=== PATIENT | female | born 1985 | race Caucasian/White ===

== ENCOUNTER 2018-02-03 19:20 | Inpatient (IN) | payer MEDICAID ==
[2018-02-03 21:52] LABS: ADD MAN DIFF? NO
[2018-02-03 21:56] LABS: ADD UMIC NO; UR ASCORBIC ACID NEGATIVE (NEGATIVE); UR BILIRUBIN (Dip) NEGATIVE (NEGATIVE); UR BLOOD (Dip) NEGATIVE (NEGATIVE); UR CLARITY CLEAR (CLEAR); UR COLOR COLORLESS (YELLOW); UR GLUCOSE (Dip) 3+ mg/dL (NEGATIVE); UR KETONES (Dip) 1+ mg/dL (NEGATIVE); UR LEUKOCYTE ESTERASE (Dip) NEGATIVE Leu/ul (NEGATIVE); UR NITRITE (Dip) NEGATIVE (NEGATIVE); UR SPECIFIC GRAVITY (Dip) 1.022 (1.003-1.030); UR TOTAL PROTEIN (Dip) NEGATIVE (NEGATIVE); UR UROBILINOGEN (Dip) NEGATIVE (NEGATIVE)
[2018-02-03] MEDS: LACTATED RINGER'S 1,000 ML IV ×2 (21:58→22:56)
[2018-02-03] MEDS: SOD CHLORIDE 0.9% 1,000 ML IV ×2 (21:58→22:56)
[2018-02-03 22:17] LABS: ALANINE AMINOTRANSFERASE 10 IU/L (13-69); ALBUMIN 4.3 g/dl (3.3-4.9); ALBUMIN/GLOBULIN RATIO 1.22; ALKALINE PHOSPHATASE 98 IU/L (42-121); ANION GAP 19 (8-16); ASPARTATE AMINO TRANSFERASE 19 IU/L (15-46); BILIRUBIN,INDIRECT 0.6 mg/dl (0-1.1); BILIRUBIN,TOTAL 0.6 mg/dl (0.2-1.3); BLOOD UREA NITROGEN 15 mg/dl (7-20); CALCIUM 9.3 mg/dl (8.4-10.2); CARBON DIOXIDE 20 mmol/L (21-31); CHLORIDE 101 mmol/L (97-110); CREATININE 0.56 mg/dl (0.44-1.00); LIPASE 94 U/L (23-300); SODIUM 135 mmol/L (135-144); TOTAL PROTEIN 7.8 g/dl (6.1-8.1)
[2018-02-03 22:18] LABS: WHITE BLOOD COUNT 5.2 10^3/ul (4.8-10.8)
[2018-02-03 22:18] LABS: BASOPHILS % 0.2 % (0.0-2.0); EOSINOPHILS # 0.1 10^3/ul (0.0-0.5); HEMATOCRIT 37.7 % (37.0-47.0); HEMOGLOBIN 12.3 g/dl (12.0-16.0); LYMPHOCYTES # 1.5 10^3/ul (0.8-2.9); LYMPHOCYTES % 28.2 % (15.0-51.0); MEAN CORPUSCULAR HEMOGLOBIN 30.4 pg (29.0-33.0); MEAN CORPUSCULAR HGB CONC 32.6 g/dl (32.0-37.0); MEAN CORPUSCULAR VOLUME 93.1 fl (82.0-101.0); MEAN PLATELET VOLUME 9.8 fl (7.4-10.4); MONOCYTE # 0.4 10^3/ul (0.3-0.9); MONOCYTES % 7.7 % (0.0-11.0); NEUTROPHIL # 3.3 10^3/ul (1.6-7.5); NEUTROPHILS % 62.7 % (39.0-77.0); PLATELET COUNT 286 10^3/UL (140-415); RED BLOOD COUNT 4.05 10^6/ul (4.20-5.40); RED CELL DISTRIBUTION WIDTH 11.9 % (11.5-14.5)
[2018-02-03 22:32] LABS: POTASSIUM 5.4 mmol/L (3.5-5.1)
[2018-02-03 22:34] LABS: GLUCOSE 738 mg/dl (70-220)
[2018-02-04] MEDS: INSULIN HUMAN REGULAR 100 UNIT in SOD CHLORIDE 0.9% 99 ML IV ×2 (00:26→03:23)
[2018-02-04 00:57] LABS: ANION GAP 21 (8-16); BLOOD UREA NITROGEN 15 mg/dl (7-20); CALCIUM 8.8 mg/dl (8.4-10.2); CARBON DIOXIDE 20 mmol/L (21-31); CHLORIDE 99 mmol/L (97-110); CREATININE 0.56 mg/dl (0.44-1.00); POTASSIUM 4.4 mmol/L (3.5-5.1); SODIUM 136 mmol/L (135-144)
[2018-02-04 01:23] LABS: GLUCOSE 753 mg/dl (70-220)
[2018-02-04] MEDS ORDERED: SOD CHLORIDE 0.9% 1,000 ML IV (02:31)
[2018-02-04] MEDS: POTASSIUM CHLORIDE 20 MEQ in SOD CHLORIDE 0.9% 1,000 ML IV (02:40)
[2018-02-04 02:44] LABS: ANION GAP 17 (8-16); BLOOD UREA NITROGEN 13 mg/dl (7-20); CALCIUM 8.8 mg/dl (8.4-10.2); CARBON DIOXIDE 18 mmol/L (21-31); CHLORIDE 107 mmol/L (97-110); CREATININE 0.54 mg/dl (0.44-1.00); POTASSIUM 3.1 mmol/L (3.5-5.1); SODIUM 139 mmol/L (135-144)
[2018-02-04 02:51] LABS: GLUCOSE 416 mg/dl (70-220)
[2018-02-04] MEDS ORDERED: morphine 2 MG INJ IV (03:00)
[2018-02-04] MEDS ORDERED: ALBUTEROL/IPRATROPIUM (NEB) 3 ML AMP NEB (03:00)
[2018-02-04] MEDS ORDERED: LORAZEPAM 2 MG INJ IV (03:00)
[2018-02-04] MEDS ORDERED: DEXTROSE 50% 50 ML SYRINGE IV ×6 (03:00→15:00)
[2018-02-04] MEDS ORDERED: ONDANSETRON 4 MG INJ IV (03:00)
[2018-02-04] MEDS: ACCU-CHEK XX ×10 (03:08→11:35)
[2018-02-04] MEDS: NS + KCL 20 MEQ 1,000 ML IV (04:07)
[2018-02-04 05:28] LABS: ADD MAN DIFF? NO
[2018-02-04 05:37] LABS: BASOPHILS % 0.5 % (0.0-2.0); EOSINOPHILS # 0.1 10^3/ul (0.0-0.5); EOSINOPHILS % 1.3 % (0.0-7.0); HEMATOCRIT 35.7 % (37.0-47.0); HEMOGLOBIN 12.2 g/dl (12.0-16.0); LYMPHOCYTES # 1.5 10^3/ul (0.8-2.9); LYMPHOCYTES % 24.3 % (15.0-51.0); MEAN CORPUSCULAR HEMOGLOBIN 30.7 pg (29.0-33.0); MEAN CORPUSCULAR HGB CONC 34.2 g/dl (32.0-37.0); MEAN CORPUSCULAR VOLUME 89.7 fl (82.0-101.0); MEAN PLATELET VOLUME 9.6 fl (7.4-10.4); MONOCYTE # 0.5 10^3/ul (0.3-0.9); NEUTROPHIL # 3.9 10^3/ul (1.6-7.5); NEUTROPHILS % 64.6 % (39.0-77.0); PLATELET COUNT 309 10^3/UL (140-415); RED BLOOD COUNT 3.98 10^6/ul (4.20-5.40); RED CELL DISTRIBUTION WIDTH 11.9 % (11.5-14.5)
[2018-02-04] MEDS: D5W-0.45 NACL + KCL 20 MEQ 1,000 ML IV (06:29)
[2018-02-04] MEDS: POTASSIUM CHLORIDE 100 ML IVPB ×2 (06:29→08:00)
[2018-02-04 06:48] LABS: ALANINE AMINOTRANSFERASE 17 IU/L (13-69); ALBUMIN 3.5 g/dl (3.3-4.9); ALBUMIN/GLOBULIN RATIO 1.09; ALKALINE PHOSPHATASE 83 IU/L (42-121); ANION GAP 13 (8-16); ASPARTATE AMINO TRANSFERASE 12 IU/L (15-46); BILIRUBIN,INDIRECT 0.6 mg/dl (0-1.1); BILIRUBIN,TOTAL 0.6 mg/dl (0.2-1.3); BLOOD UREA NITROGEN 11 mg/dl (7-20); CALCIUM 8.9 mg/dl (8.4-10.2); CARBON DIOXIDE 23 mmol/L (21-31); CHLORIDE 110 mmol/L (97-110); CREATININE 0.47 mg/dl (0.44-1.00); GLUCOSE 172 mg/dl (70-220); POTASSIUM 3.5 mmol/L (3.5-5.1); SODIUM 142 mmol/L (135-144); TOTAL PROTEIN 6.7 g/dl (6.1-8.1)
[2018-02-04 08:30] LABS: HEMOGLOBIN A1C 10.2 % (0-5.9)
[2018-02-04] MEDS: FAMOTIDINE 20 MG INJ IV ×2 (08:43→20:34)
[2018-02-04] MEDS ORDERED: INSULIN GLARGINE [LANtus] 3 ML PEN SC (10:00)
[2018-02-04] MEDS: INSULIN GLARGINE [LANtus] 3 ML PEN SC ×2 (10:32→20:00)
[2018-02-04 10:34] LABS: HEMOGLOBIN A1C 10.1 % (0-5.9)
[2018-02-04] MEDS: INSULIN ASPART [NOVOLOG] 3 ML PEN SC ×4 (11:30→20:37)
[2018-02-04] MEDS ORDERED: GLUCAGON 1 MG INJ IM (15:00)
[2018-02-04] MEDS ORDERED: GLUCOSE GEL 15 GRAM TUBE PO ×2 (15:00)
[2018-02-04] MEDS ORDERED: morphine LIQ (10 MG/5 ML) CUP PO (15:00)
[2018-02-04] MEDS ORDERED: GLUCOSE GEL 15 GRAM TUBE BUCCAL (15:00)
[2018-02-04] MEDS: FLUVOXAMINE 50 MG TAB PO (21:59)
[2018-02-05] MEDS: FAMOTIDINE 20 MG INJ IV ×2 (07:41→20:53)
[2018-02-05] MEDS: INSULIN ASPART [NOVOLOG] 3 ML PEN SC ×7 (07:50→20:54)
[2018-02-05] MEDS: FLUVOXAMINE 50 MG TAB PO (20:54)
[2018-02-05] MEDS: INSULIN GLARGINE [LANtus] 3 ML PEN SC (20:57)
[2018-02-06 05:51] LABS: ADD MAN DIFF? NO
[2018-02-06 05:54] LABS: WHITE BLOOD COUNT 7.8 10^3/ul (4.8-10.8)
[2018-02-06 05:54] LABS: BASOPHILS % 0.3 % (0.0-2.0); EOSINOPHILS # 0.2 10^3/ul (0.0-0.5); HEMATOCRIT 36.6 % (37.0-47.0); HEMOGLOBIN 12.5 g/dl (12.0-16.0); LYMPHOCYTES # 3.2 10^3/ul (0.8-2.9); LYMPHOCYTES % 40.3 % (15.0-51.0); MEAN CORPUSCULAR HEMOGLOBIN 30.9 pg (29.0-33.0); MEAN CORPUSCULAR HGB CONC 34.2 g/dl (32.0-37.0); MEAN CORPUSCULAR VOLUME 90.4 fl (82.0-101.0); MEAN PLATELET VOLUME 9.6 fl (7.4-10.4); MONOCYTE # 0.5 10^3/ul (0.3-0.9); MONOCYTES % 6.5 % (0.0-11.0); NEUTROPHILS % 50.8 % (39.0-77.0); PLATELET COUNT 292 10^3/UL (140-415); RED BLOOD COUNT 4.05 10^6/ul (4.20-5.40); RED CELL DISTRIBUTION WIDTH 11.9 % (11.5-14.5)
[2018-02-06 06:37] LABS: ALBUMIN 3.4 g/dl (3.3-4.9); ANION GAP 14 (8-16); BLOOD UREA NITROGEN 14 mg/dl (7-20); CALCIUM 8.7 mg/dl (8.4-10.2); CARBON DIOXIDE 23 mmol/L (21-31); CHLORIDE 107 mmol/L (97-110); CREATININE 0.57 mg/dl (0.44-1.00); GLUCOSE 268 mg/dl (70-220); MAGNESIUM 1.7 mg/dl (1.7-2.5); PHOSPHORUS 4.1 mg/dl (2.5-4.9); POTASSIUM 4.3 mmol/L (3.5-5.1); SODIUM 140 mmol/L (135-144)
[2018-02-06] MEDS: FAMOTIDINE 20 MG INJ IV ×2 (08:14→21:54)
[2018-02-06] MEDS: INSULIN ASPART [NOVOLOG] 3 ML PEN SC ×7 (08:20→21:00)
[2018-02-06] MEDS: MAGNESIUM OXIDE 400 MG TAB PO (10:00)
[2018-02-06] MEDS ORDERED: INSULIN GLARGINE [LANtus] 3 ML PEN SC (20:00)
[2018-02-06] MEDS: FLUVOXAMINE 50 MG TAB PO (21:55)
[2018-02-06] MEDS: INSULIN GLARGINE [LANtus] 3 ML PEN SC (21:56)
[2018-02-07 06:01] LABS: ADD MAN DIFF? NO
[2018-02-07 06:20] LABS: WHITE BLOOD COUNT 7.7 10^3/ul (4.8-10.8)
[2018-02-07 06:20] LABS: BASOPHILS % 0.3 % (0.0-2.0); EOSINOPHILS # 0.1 10^3/ul (0.0-0.5); EOSINOPHILS % 1.7 % (0.0-7.0); HEMATOCRIT 38.9 % (37.0-47.0); HEMOGLOBIN 13.3 g/dl (12.0-16.0); LYMPHOCYTES # 2.6 10^3/ul (0.8-2.9); LYMPHOCYTES % 34.2 % (15.0-51.0); MEAN CORPUSCULAR HEMOGLOBIN 30.8 pg (29.0-33.0); MEAN CORPUSCULAR HGB CONC 34.2 g/dl (32.0-37.0); MEAN PLATELET VOLUME 9.6 fl (7.4-10.4); MONOCYTE # 0.4 10^3/ul (0.3-0.9); MONOCYTES % 4.6 % (0.0-11.0); NEUTROPHIL # 4.5 10^3/ul (1.6-7.5); NEUTROPHILS % 59.1 % (39.0-77.0); PLATELET COUNT 304 10^3/UL (140-415); RED BLOOD COUNT 4.32 10^6/ul (4.20-5.40); RED CELL DISTRIBUTION WIDTH 11.7 % (11.5-14.5)
[2018-02-07 07:19] LABS: ANION GAP 18 (8-16); BLOOD UREA NITROGEN 16 mg/dl (7-20); CALCIUM 9.2 mg/dl (8.4-10.2); CARBON DIOXIDE 22 mmol/L (21-31); CHLORIDE 101 mmol/L (97-110); CREATININE 0.67 mg/dl (0.44-1.00); GLUCOSE 346 mg/dl (70-220); MAGNESIUM 1.7 mg/dl (1.7-2.5); PHOSPHORUS 4.4 mg/dl (2.5-4.9); POTASSIUM 4.5 mmol/L (3.5-5.1); SODIUM 136 mmol/L (135-144)
[2018-02-07] MEDS: FAMOTIDINE 20 MG INJ IV ×2 (07:54→21:07)
[2018-02-07] MEDS: INSULIN ASPART [NOVOLOG] 3 ML PEN SC ×7 (07:58→21:00)
[2018-02-07] MEDS ORDERED: INSULIN GLARGINE [LANtus] 3 ML PEN SC ×2 (20:00)
[2018-02-07] MEDS: FLUVOXAMINE 50 MG TAB PO (21:07)
[2018-02-07] MEDS: INSULIN GLARGINE [LANtus] 3 ML PEN SC (21:16)
[2018-02-07] MEDS: NPH, HUMAN INSULIN ISOPHANE 3ML VIAL SC (22:52)
[2018-02-08 05:39] LABS: ADD MAN DIFF? NO
[2018-02-08 05:48] LABS: BASOPHILS % 0.3 % (0.0-2.0); EOSINOPHILS # 0.1 10^3/ul (0.0-0.5); EOSINOPHILS % 1.3 % (0.0-7.0); HEMATOCRIT 38.4 % (37.0-47.0); HEMOGLOBIN 13.5 g/dl (12.0-16.0); LYMPHOCYTES # 3.5 10^3/ul (0.8-2.9); LYMPHOCYTES % 38.8 % (15.0-51.0); MEAN CORPUSCULAR HGB CONC 35.2 g/dl (32.0-37.0); MEAN CORPUSCULAR VOLUME 88.3 fl (82.0-101.0); MEAN PLATELET VOLUME 9.3 fl (7.4-10.4); MONOCYTE # 0.5 10^3/ul (0.3-0.9); MONOCYTES % 5.1 % (0.0-11.0); NEUTROPHIL # 4.9 10^3/ul (1.6-7.5); NEUTROPHILS % 54.3 % (39.0-77.0); PLATELET COUNT 329 10^3/UL (140-415); RED BLOOD COUNT 4.35 10^6/ul (4.20-5.40); RED CELL DISTRIBUTION WIDTH 11.8 % (11.5-14.5)
[2018-02-08 06:23] LABS: ANION GAP 13 (8-16); BLOOD UREA NITROGEN 16 mg/dl (7-20); CALCIUM 9.2 mg/dl (8.4-10.2); CARBON DIOXIDE 24 mmol/L (21-31); CHLORIDE 108 mmol/L (97-110); CREATININE 0.61 mg/dl (0.44-1.00); MAGNESIUM 1.8 mg/dl (1.7-2.5); PHOSPHORUS 4.4 mg/dl (2.5-4.9); POTASSIUM 3.4 mmol/L (3.5-5.1); SODIUM 142 mmol/L (135-144)
[2018-02-08 06:33] LABS: GLUCOSE 35 mg/dl (70-220)
[2018-02-08] MEDS: INSULIN ASPART [NOVOLOG] 3 ML PEN SC ×4 (08:20→12:06)
[2018-02-08] MEDS: FAMOTIDINE 20 MG INJ IV (08:27)
[2018-02-08] MEDS: POTASSIUM CHLORIDE (SR) 20 MEQ TAB PO (10:56)
[2018-02-08] MEDS ORDERED: NPH, HUMAN INSULIN ISOPHANE 3ML VIAL SC (22:00)
== END 2018-02-08 13:20 | disposition home or self-care (01) | DRG 639 ==
LOC: ICU 23:36 → E/R 19:20 → MS2 02-04 17:15
PROVIDERS: Internal Medicine
DX: E10.10 Type 1 diabetes mellitus with ketoacidosis without coma (principal); E87.6 Hypokalemia
CPT/HCPCS: 36415; 80048; 80053; 80069; 81003; 81025; 82962; 83036; 83690; 83735; 85025; 87081; 96374; 99285-25

== ENCOUNTER 2018-04-12 00:53 | Emergency (ER) | payer MEDICAID | END 2018-04-12 03:36 | disposition home or self-care (01) | LOC: E/R 00:53 | DX: E10.649 Type 1 diabetes mellitus with hypoglycemia without coma (principal); Z79.4 Long term (current) use of insulin | CPT/HCPCS: 82962; 99283 ==

== ENCOUNTER 2018-08-30 14:04 | Emergency (ER) | payer MEDICAID ==
[2018-08-30 15:05] LABS: URINE BLOOD (Dip) POC Negative (NEGATIVE); URINE KETONES (Dip) POC Trace (NEGATIVE); URINE LEUKOCYTE EST (Dip) POC 1+ (NEGATIVE); URINE NITRITE (Dip) POC Negative (NEGATIVE); URINE TOTAL PROTEIN POC Negative (NEGATIVE)
[2018-08-30 15:09] LABS: ADD MAN DIFF? NO
[2018-08-30] MEDS: LACTATED RINGER'S 1,000 ML IV (15:10)
[2018-08-30] MEDS: ONDANSETRON 4 MG INJ IV (15:11)
[2018-08-30 15:16] LABS: BASOPHILS % 0.4 % (0.0-2.0); EOSINOPHILS # 0.1 10^3/ul (0.0-0.5); EOSINOPHILS % 1.1 % (0.0-7.0); HEMATOCRIT 40.8 % (37.0-47.0); HEMOGLOBIN 13.8 g/dl (12.0-16.0); LYMPHOCYTES # 1.5 10^3/ul (0.8-2.9); LYMPHOCYTES % 20.3 % (15.0-51.0); MEAN CORPUSCULAR HEMOGLOBIN 31.2 pg (29.0-33.0); MEAN CORPUSCULAR HGB CONC 33.8 g/dl (32.0-37.0); MEAN CORPUSCULAR VOLUME 92.3 fl (82.0-101.0); MEAN PLATELET VOLUME 9.8 fl (7.4-10.4); MONOCYTE # 0.4 10^3/ul (0.3-0.9); MONOCYTES % 4.7 % (0.0-11.0); NEUTROPHIL # 5.5 10^3/ul (1.6-7.5); NEUTROPHILS % 73.2 % (39.0-77.0); PLATELET COUNT 352 10^3/UL (140-415); RED BLOOD COUNT 4.42 10^6/ul (4.20-5.40); RED CELL DISTRIBUTION WIDTH 12.2 % (11.5-14.5)
[2018-08-30 15:16] LABS: WHITE BLOOD COUNT 7.4 10^3/ul (4.8-10.8)
[2018-08-30 15:22] LABS: ANION GAP 9 (5-13); BLOOD UREA NITROGEN 10 mg/dl (7-20); CALCIUM 9.4 mg/dl (8.4-10.2); CARBON DIOXIDE 26 mmol/L (21-31); CHLORIDE 102 mmol/L (97-110); CREATININE 0.55 mg/dl (0.44-1.00); Estimated GFR > 60 mL/min (>60); GLUCOSE 392 mg/dl (70-220); POTASSIUM 4.6 mmol/L (3.5-5.1); SODIUM 137 mmol/L (135-144)
[2018-08-30 15:26] LABS: ADD UMIC YES; UR ASCORBIC ACID NEGATIVE (NEGATIVE); UR BACTERIA FEW /HPF (NONE SEEN); UR BILIRUBIN (Dip) NEGATIVE (NEGATIVE); UR BLOOD (Dip) NEGATIVE (NEGATIVE); UR CLARITY CLOUDY (CLEAR); UR COLOR YELLOW (YELLOW); UR GLUCOSE (Dip) 3+ mg/dL (NEGATIVE); UR KETONES (Dip) TRACE mg/dL (NEGATIVE); UR LEUKOCYTE ESTERASE (Dip) 3+ Leu/ul (NEGATIVE); UR NITRITE (Dip) NEGATIVE (NEGATIVE); UR RBC 1 /HPF (0-5); UR SPECIFIC GRAVITY (Dip) 1.022 (1.003-1.030); UR SQUAMOUS EPITHELIAL CELL MANY /HPF (FEW); UR TOTAL PROTEIN (Dip) NEGATIVE (NEGATIVE); UR UROBILINOGEN (Dip) NEGATIVE (NEGATIVE); UR WBC 8 /HPF (0-5)
[2018-08-30 15:50] LABS: MODE ROOM AIR; MetHgb Venous 0.3 %; Sample Type Blood venous; Site VENOUS LINE; Venous COHb 0.6 %; Venous Fraction OxyHgb 56.6 %; Venous Oxygen Sat 57.1 mmHG (55.0-75.0); Venous Total Hemglobin 14.7 g/dl
[2018-08-30] MEDS: INSULIN REGULAR, HUMAN 100 UNIT/1 ML 3ML VIAL SC (17:09)
== END 2018-08-30 18:24 | disposition home or self-care (01) ==
LOC: E/R 14:04
DX: E10.65 Type 1 diabetes mellitus with hyperglycemia (principal); Z79.4 Long term (current) use of insulin
CPT/HCPCS: 36415; 80048; 81001; 81003; 82803; 82962; 83605; 85025; 96372; 96374; 99284-25

== ENCOUNTER 2018-08-31 17:41 | Emergency (ER) | payer MEDICAID ==
[2018-08-31] MEDS ORDERED: DEXTROSE 50% 50 ML SYRINGE (19:04)
[2018-08-31] MEDS ORDERED: ONDANSETRON (ODT) 4 MG TAB ODT (19:20)
[2018-08-31 19:52] LABS: ADD MAN DIFF? NO
[2018-08-31] MEDS: ONDANSETRON 4 MG INJ IV (19:55)
[2018-08-31] MEDS: DEXTROSE 5%-0.9% NACL 1,000 ML IV ×2 (19:55→20:01)
[2018-08-31 19:58] LABS: BASOPHILS % 0.4 % (0.0-2.0); EOSINOPHILS % 0.5 % (0.0-7.0); HEMATOCRIT 44.4 % (37.0-47.0); HEMOGLOBIN 14.6 g/dl (12.0-16.0); LYMPHOCYTES # 1.5 10^3/ul (0.8-2.9); MEAN CORPUSCULAR HEMOGLOBIN 30.2 pg (29.0-33.0); MEAN CORPUSCULAR HGB CONC 32.9 g/dl (32.0-37.0); MEAN CORPUSCULAR VOLUME 91.9 fl (82.0-101.0); MEAN PLATELET VOLUME 9.5 fl (7.4-10.4); MONOCYTE # 0.3 10^3/ul (0.3-0.9); MONOCYTES % 4.2 % (0.0-11.0); NEUTROPHIL # 5.9 10^3/ul (1.6-7.5); NEUTROPHILS % 75.6 % (39.0-77.0); PLATELET COUNT 406 10^3/UL (140-415); RED BLOOD COUNT 4.83 10^6/ul (4.20-5.40); RED CELL DISTRIBUTION WIDTH 12.2 % (11.5-14.5)
[2018-08-31 19:58] LABS: WHITE BLOOD COUNT 7.9 10^3/ul (4.8-10.8)
[2018-08-31 20:18] LABS: ANION GAP 16 (5-13); BLOOD UREA NITROGEN 11 mg/dl (7-20); CALCIUM 10.1 mg/dl (8.4-10.2); CARBON DIOXIDE 21 mmol/L (21-31); CHLORIDE 104 mmol/L (97-110); CREATININE 0.55 mg/dl (0.44-1.00); Estimated GFR > 60 mL/min (>60); GLUCOSE 97 mg/dl (70-220); POTASSIUM 3.8 mmol/L (3.5-5.1); SODIUM 141 mmol/L (135-144)
[2018-08-31] MEDS: ONDANSETRON (ODT) 4 MG TAB ODT (20:48)
== END 2018-08-31 20:55 | disposition home or self-care (01) ==
LOC: E/R 17:41
DX: E10.641 Type 1 diabetes mellitus with hypoglycemia with coma (principal); R19.7 Diarrhea, unspecified; Z79.4 Long term (current) use of insulin
CPT/HCPCS: 80048; 82962; 84703; 85025; 87400; 96374; 99284-25